=== PATIENT | female | born 1950 | race Caucasian/White ===

== ENCOUNTER 2021-11-18 20:08 | Observation (INO) ==
[2021-11-18] MEDS ORDERED: ONDANSETRON ODT 4 MG TABLET PO STA (20:32)
[2021-11-18] MEDS ORDERED: ASPIRIN 325 MG TABLET PO STA (20:32)
[2021-11-18] MEDS ORDERED: MORPHINE 2 MG/1 ML SYRINGE IV STA ×2 (20:32→22:12)
[2021-11-18] MEDS ORDERED: NITROGLYCERIN SL 0.4 MG TABLET SL STA (20:32)
[2021-11-18] MEDS ORDERED: ONDANSETRON 4 MG/2 ML VIAL ONE (20:36)
[2021-11-18] MEDS ORDERED: ONDANSETRON 4 MG/2 ML VIAL IV STA (20:41)
[2021-11-18 20:48] LABS: Basophils # 0.1 10*3/uL (0.0-0.2); Basophils % 0.6 % (0.0-0.8); Eosinophils # 0.2 10*3/uL (0.0-0.87); Hematocrit 38.3 VOL% (35.7-47.0); Hemoglobin 12.8 GM/DL (12.0-16.0); Immature Granulocytes % 0.7 %; Immature Granulocytes Absolute 0.06 #; Lymphocytes # 3.2 10*3/uL (1.4-4.0); Mean Corpuscular HGB Conc 33.4 GM/DL (32-36); Mean Platelet Volume 8.9 FL (9.6-12.0); Monocytes # 0.8 10*3/uL (0.11-0.8); Monocytes % 8.7 % (1.7-12.7); Platelet Count 228 T/CUMM (130-400); Red Blood Count 4.21 MC/CUMM (3.8-5.5); Red Cell Distribution Width 13.1 % (9.3-17.3); White Blood Count 8.8 T/CUMM (4-12)
[2021-11-18 21:00] LABS: INR 0.9; Partial Thromboplastin Time 28.4 SECS (23.8-32.1)
[2021-11-18 21:07] LABS: Bilirubin,Total 0.6 MG/DL (0.20-1.00); Calcium 8.7 MG/DL (8.5-10.1); Total Protein 7.4 G/DL (6.4-8.2)
[2021-11-18 21:08] LABS: Osmolality,Calculated 276.7 MOS/KG (273-304); Potassium 3.3 MMOL/L (3.5-5.1)
[2021-11-18] MEDS ORDERED: ONDANSETRON 4 MG/2 ML VIAL IV PRN (21:31)
[2021-11-18] MEDS ORDERED: ALUM/MAG/SIMETH/LIDO VISC 1:1 30 ML BOTTLE PO STA (21:31)
[2021-11-18] MEDS: SODIUM CHLORIDE 0.9% 1,000 ML IV SCH (22:19)
[2021-11-19 03:53] LABS: Basophils % 0.2 % (0.0-0.8); Eosinophils # 0.1 10*3/uL (0.0-0.87); Eosinophils % 0.5 % (0.00-10.9); Hematocrit 32.2 VOL% (35.7-47.0); Hemoglobin 10.9 GM/DL (12.0-16.0); Immature Granulocytes % 0.5 %; Immature Granulocytes Absolute 0.05 #; Lymphocytes # 1.6 10*3/uL (1.4-4.0); Lymphocytes % 16.3 % (21.3-54.2); Mean Corpuscular HGB Conc 33.9 GM/DL (32-36); Mean Corpuscular Volume 91.7 FL (87-102); Mean Platelet Volume 8.9 FL (9.6-12.0); Monocytes # 0.6 10*3/uL (0.11-0.8); Monocytes % 6.3 % (1.7-12.7); Neutrophils % 76.2 % (38.7-73.9); Platelet Count 178 T/CUMM (130-400); Red Blood Count 3.51 MC/CUMM (3.8-5.5); White Blood Count 9.8 T/CUMM (4-12)
[2021-11-19 04:15] LABS: Albumin 3.3 G/DL (3.4-5.0); Bilirubin,Total 0.5 MG/DL (0.20-1.00); Calcium 7.6 MG/DL (8.5-10.1); Osmolality,Calculated 282.4 MOS/KG (273-304); Potassium 3.8 MMOL/L (3.5-5.1); Total Protein 6.1 G/DL (6.4-8.2)
[2021-11-19] MEDS ORDERED: LEVOTHYROXINE 150 MCG TABLET PO SCH (06:30)
[2021-11-19] MEDS ORDERED: NITROGLYCERIN SL 0.4 MG TABLET SL PRN (06:46)
[2021-11-19] MEDS: SODIUM CHLORIDE 0.9% 1,000 ML IV SCH (08:07)
[2021-11-19] MEDS ORDERED: ALUM/MAG/SIMETH/LIDO VISC 1:1 30 ML BOTTLE PO PRN (08:25)
[2021-11-19] MEDS ORDERED: PRAMIPEXOLE 0.25 MG TABLET PO SCH (09:00)
[2021-11-19] MEDS ORDERED: GABAPENTIN 100 MG CAPSULE PO SCH (09:00)
[2021-11-19] MEDS ORDERED: METOPROLOL SUCCINATE XL 25 MG TABLET PO SCH (09:00)
[2021-11-19] MEDS ORDERED: ASPIRIN EC 81 MG TABLET PO SCH (09:00)
[2021-11-19] MEDS ORDERED: PANTOPRAZOLE 40 MG VIAL IV SCH (09:00)
[2021-11-19] MEDS ORDERED: OXYBUTYNIN 5 MG TABLET PO SCH (09:00)
[2021-11-19] MEDS ORDERED: SPIRONOLACTONE 25 MG TABLET PO SCH (09:00)
[2021-11-19] MEDS ORDERED: POTASSIUM CHLORIDE 20 MEQ TABLET PO SCH (09:00)
[2021-11-19] MEDS ORDERED: CYCLOBENZAPRINE 10 MG TABLET PO SCH (09:00)
[2021-11-19] MEDS ORDERED: FUROSEMIDE 40 MG TABLET PO SCH (09:00)
[2021-11-19 09:55] VITALS: BP 161/70
[2021-11-19] MEDS ORDERED: ATORVASTATIN 40 MG TABLET PO SCH (21:00)
== END 2021-11-19 11:16 | disposition home or self-care (01) ==
LOC: N.ED 20:08 → N.EDINP 20:08
PROVIDERS: ADMIT Family Medicine; ATTEND Family Medicine